=== PATIENT | female | born 1990 | race Caucasian/White ===

== ENCOUNTER 2016-09-01 19:43 | Emergency (ER) | payer BC ==
[2016-09-01 20:38] VITALS: BP 125/71
[2016-09-01] MEDS ORDERED: Gabapentin CAP(*) 100 MG PO ONE (21:51)
[2016-09-01] MEDS ORDERED: Cyclobenzaprine TAB* 10 MG PO ONE ×2 (21:51→21:52)
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
== END 2016-09-01 22:02 | disposition home or self-care (01) ==
LOC: UCCORT 19:43
DX: M54.12 Radiculopathy, cervical region (principal); J45.909 Unspecified asthma, uncomplicated; H53.8 Other visual disturbances; Z88.1 Allergy status to other antibiotic agents; Z88.0 Allergy status to penicillin; Z88.8 Allergy status to other drugs, medicaments and biological substances
CPT/HCPCS: 99212; A9270-GY; G0463

== ENCOUNTER 2018-08-14 18:39 | Emergency (ER) | payer SELFPAY ==
[2018-08-14 19:23] VITALS: BP 116/67
--- NOTE | 2018-08-14 19:52 | UC ---
Minor Trauma HPI - HPI Summary HPI Summary: 27 yo female presents minutes after falling down stairs right knee and foot pain unable to bear wt denies head or neck injury - History of Current Complaint Chief Complaint: UCLowerExtremity Stated Complaint: RIGHT KNEE INJURY Time Seen by Provider: 08/14/18 19:17 Hx Obtained From: Patient Hx Last Menstrual Period: 07/22/18 Onset/Duration: Sudden Onset, Lasting Minutes Onset Of Pain: Immediate Severity Initially: Severe Severity Currently: Moderate Pain Intensity: 7 - decline analgesic Pain Scale Used: 0-10 Numeric Mechanism Of Injury: Fall From A Standing Position Aggravating Factor(s): Ambulation Alleviating Factor(s): Elevation Associated Signs And Symptoms: Positive: Other: - right knee abrasion. Negative : Loss Of Consciousness Body - Head: 1 - abrasion/entire knee tender to palpation 2 - tender dorsum of mid foot - Allergies/Home Medications Allergies/Adverse Reactions: Allergies Allergy/AdvReac Type Severity Reaction Status Date / Time albuterol Allergy Difficulty Verified 08/14/18 19:22 Breathing amoxicillin Allergy Hives Verified 08/14/18 19:22 doxycycline Allergy Anaphylatic Verified 08/14/18 19:22 Shock Penicillins Allergy Hives Verified 08/14/18 19:22 prednisone Allergy Difficulty Verified 08/14/18 19:22 Breathing Home Medications: Home Medications NK [No Home Medications Reported] 08/14/18 [History Confirmed 08/14/18] PMH/Surg Hx/FS Hx/Imm Hx Previously Healthy: Yes - Surgical History Surgical History: Yes Surgery Procedure, Year, and Place: Breast reduction April 2010. laproscopy. LEFT LABRAL REPAIR - Family History Known Family History: Positive: Other - No CVA. Negative: Cardiac Disease - Social History Alcohol Use: Occasionally Substance Use Type: None Smoking Status (MU): Never Smoked Tobacco Have You Smoked in the Last Year: No Review of Systems All Other Systems Reviewed And Are Negative: Yes Constitutional: Positive: Negative Eyes: Positive: Negative ENT: Positive: Negative Respiratory: Positive: Negative Cardiovascular: Positive: Negative Gastrointestinal: Positive: Negative Genitourinary: Positive: Negative Motor: Positive: Negative Neurovascular: Positive: Negative Musculoskeletal: Positive: Arthralgia - right knee/foot Neurological: Positive: Negative Psychological: Positive: Negative Physical Exam Triage Information Reviewed: Yes Appearance: Well-Appearing, No Pain Distress, Well-Nourished Vital Signs: Initial Vital Signs Temp 98.3 F 08/14/18 19:19 Pulse 87 08/14/18 19:19 Resp 18 08/14/18 19:19 BP 116/67 08/14/18 19:19 Pulse Ox 100 08/14/18 19:19 Vital Signs Reviewed: Yes Eyes: Positive: Conjunctiva Clear ENT: Positive: Hearing grossly normal, Uvula midline. Negative: Nasal congestion, Nasal drainage, Trismus, Muffled voice, Hoarse voice Neck: Positive: Supple, Nontender, No Lymphadenopathy Respiratory: Positive: Lungs clear, Normal breath sounds, No respiratory distress, No accessory muscle use Cardiovascular Exam: Normal Cardiovascular: Positive: RRR Bowel Sounds: Positive: Present Neurological: Positive: Other: - see image Psychological Exam: Normal Skin Exam: Normal Diagnostics - Radiology No standard instances Radiology Interpretation Completed By: ED Physician Summary of Radiographic Findings: no fx noted right knee or foot Minor Trauma Course/Dx - Differential Dx/Diagnosis Provider Diagnosis: Contusion of right knee, Abrasion of right knee, Right foot sprain Discharge - Sign-Out/Discharge Documenting (check all that apply): Patient Departure All imaging exams completed and their final reports reviewed: No - Discharge Plan Condition: Critical Disposition: HOME Patient Education Materials: Knee Immobilizer (ED), Knee Pain (ED), Foot Sprain (ED), Crutch Instructions (ED), R.I.C.E. Treatment (ED) Forms: *Work Release Referrals: No Primary Care Phys,NOPCP [Primary Care Provider] - Colton Lozada MD [Medical Doctor] - As Soon As Possible - Billing Disposition and Condition Condition: CRITICAL Disposition: Home
--- NOTE | 2018-08-15 11:34 | UC ---
- Progress Note Progress Note: RADIOLOGY REPORTS REVIEWED. NO ACUTE OSSEOUS INJURY. NO CHANGE IN MGMT. Course/Dx - Diagnoses Provider Diagnoses: Contusion of right knee, Abrasion of right knee, Right foot sprain Discharge - Sign-Out/Discharge Documenting (check all that apply): Post-Discharge Follow Up All imaging exams completed and their final reports reviewed: Yes - Discharge Plan Condition: Improved Disposition: HOME Patient Education Materials: Crutch Instructions (ED), Foot Sprain (ED), Knee Pain (ED), R.I.C.E. Treatment (ED), Knee Immobilizer (ED) Forms: *Work Release Referrals: Colton Lozada MD [Medical Doctor] - As Soon As Possible No Primary Care Phys,NOPCP [Primary Care Provider] - - Billing Disposition and Condition Condition: IMPROVED Disposition: Home
== END 2018-08-14 21:09 | disposition home or self-care (01) ==
LOC: UCCORT 18:39
DX: S80.01XA Contusion of right knee, initial encounter (principal); S80.211A Abrasion, right knee, initial encounter; S93.601A Unspecified sprain of right foot, initial encounter; Z88.1 Allergy status to other antibiotic agents; Z88.0 Allergy status to penicillin; Z88.8 Allergy status to other drugs, medicaments and biological substances; W10.9XXA Fall (on) (from) unspecified stairs and steps, initial encounter; Y92.9 Unspecified place or not applicable
CPT/HCPCS: 99213; G0463

== ENCOUNTER 2019-03-07 17:20 | Emergency (ER) | payer SELFPAY ==
[2019-03-07 18:13] VITALS: BP 112/78
[2019-03-07] MEDS ORDERED: Ondansetron ODT TAB* 4 MG PO ONE (19:27)
--- NOTE | 2019-03-07 19:27 | UC ---
UC General HPI - HPI Summary HPI Summary: 28-year-old female comes in with a chief complaint of not feeling well for 2 weeks. 2 weeks ago patient took an edible drug and was very disoriented and had nausea and vomiting. Reports she felt disoriented for about 3 days. She's continued to have epigastric pain and nausea. She had diarrhea until a couple of days ago. Reports stools are still loose. About a week ago she developed upper respiratory tract infection symptoms with rhinorrhea cough and chest congestion. She gets intermittent headaches that are centered in either the right or left frontal areas. She's had migraines in the past and these are similar to her prior migraines. She takes ibuprofen and they go away. Headaches do not wake her from sleep. Denies any focal weakness or numbness. No difficulty with speech or vision. She has been having episodes of dizziness where the floor seems to be moving. Dizziness is worse with movement of her head. The dizziness is intermittent. - History of Current Complaint Chief Complaint: UCRespiratory Stated Complaint: DIZZINESS Time Seen by Provider: 03/07/19 18:56 Hx Last Menstrual Period: 02/20/19 Pain Intensity: 6 - Allergy/Home Medications Allergies/Adverse Reactions: Allergies Allergy/AdvReac Type Severity Reaction Status Date / Time Adhesive Tape Allergy Swelling Verified 03/07/19 18:14 albuterol Allergy Difficulty Verified 03/07/19 18:13 Breathing amoxicillin Allergy Hives Verified 03/07/19 18:13 doxycycline Allergy Anaphylatic Verified 03/07/19 18:13 Shock hydrocodone Allergy Vomiting Verified 03/07/19 18:14 Penicillins Allergy Hives Verified 03/07/19 18:13 prednisone Allergy Difficulty Verified 03/07/19 18:13 Breathing PMH/Surg Hx/FS Hx/Imm Hx Previously Healthy: Yes - Surgical History Surgical History: Yes Surgery Procedure, Year, and Place: Breast reduction April 2010. laproscopy. LEFT LABRAL REPAIR - Family History Known Family History: Positive: Other - No CVA. Negative: Cardiac Disease - Social History Alcohol Use: Occasionally Substance Use Type: Marijuana Substance Use Comment - Amount & Last Used: 02/24/19 ate marijuana infused "edible" Smoking Status (MU): Never Smoked Tobacco Have You Smoked in the Last Year: No Review of Systems All Other Systems Reviewed And Are Negative: Yes Constitutional: Positive: Other - SEE HPI Skin: Positive: Negative Eyes: Positive: Negative ENT: Positive: Nasal Discharge, Sinus Congestion Respiratory: Positive: Cough, Other - SEE HPI Cardiovascular: Positive: Negative Gastrointestinal: Positive: Abdominal Pain, Vomiting, Diarrhea, Nausea, Other - SEE HPI Genitourinary: Positive: Negative Motor: Positive: Negative Neurovascular: Positive: Negative Musculoskeletal: Positive: Negative Neurological: Positive: Headache Psychological: Positive: Negative Is Patient Immunocompromised?: No Physical Exam Triage Information Reviewed: Yes Appearance: Well-Appearing, No Pain Distress, Well-Nourished Vital Signs: Initial Vital Signs Temp 98.2 F 03/07/19 18:03 Pulse 80 03/07/19 18:03 Resp 16 03/07/19 18:03 BP 112/78 03/07/19 18:03 Pulse Ox 100 03/07/19 18:03 Vital Signs Reviewed: Yes Eye Exam: Normal Eyes: Positive: Conjunctiva Clear, Other: - PERRLA EOMI. No nystagmus on exam. No visual field deficits. Patient reports that she does have a little bit dizzy with movement of her eyes. ENT: Positive: Pharynx normal, TMs normal Neck: Positive: Supple Respiratory: Positive: Lungs clear, Normal breath sounds, No respiratory distress Cardiovascular: Positive: RRR Abdomen Description: Positive: Other: - Mild tenderness to palpation in the epigastrium. Otherwise nontender positive bowel sounds. Bowel Sounds: Positive: Present Musculoskeletal: Positive: Strength Intact, ROM Intact Neurological: Positive: Alert, Muscle Tone Normal, Other: - No nystagmus on exam. No focal visual deficit no speech difficulties. Smile is symmetric normal sensation both sides of the face arms have full range of motion there is no drift full-strength in the arms and legs. Heel to vásquez and finger to nose are all normal. Patient is able to hop up and down on one leg without problems. Psychological: Positive: Age Appropriate Behavior Skin Exam: Normal Course/Dx - Course Course Of Treatment: It appears that the patient's continued to have GI upset after taking the edible drug. She describes burning in the epigastrium. To treat that with omeprazole. She's also been nauseous, treat that with Zofran. The diarrhea is improving. Patient has also having symptoms of vertigo. We'll treat that with meclizine. Patient has no focal neurologic deficits. The headaches come and go. They do improve with ibuprofen. Appears the patient's picked up an upper respiratory tract infection on top of her other symptoms. At this time were not to treat with an antibiotic as it could upset the stomach further. Recommended symptomatically treatment of her upper respiratory tract infection symptoms. Patient's to get reevaluated if not improving or worse. - Diagnoses Provider Diagnosis: Dizziness, Nausea, Epigastric pain, GERD (gastroesophageal reflux disease) Discharge ED - Sign-Out/Discharge Documenting (check all that apply): Patient Departure All imaging exams completed and their final reports reviewed: No Studies - Discharge Plan Condition: Stable Disposition: HOME Prescriptions: Meclizine HCl [Motion Sickness Relief] 25 mg PO Q6HR PRN #20 tablet PRN Reason: Dizziness Omeprazole 20 mg PO BID #30 capsule. Ondansetron ODT TAB* [Zofran 4 MG Odt TAB*] 4 mg PO Q6H PRN #15 tab.odt PRN Reason: Nausea Patient Education Materials: Vertigo (ED), Abdominal Pain (ED), Dizziness (ED) Referrals: [facility]FERRAL [Outside] [facility] [Outside] Additional Instructions: FOLLOW UP WITH YOUR DOCTOR IF NOT COMPLETELY IMPROVED. GET RECHECKED SOONER IF YOUR CONDITION WORSENS OR ANY QUESTIONS OR CONCERNS. - Billing Disposition and Condition Condition: STABLE Disposition: Home
== END 2019-03-07 19:40 | disposition home or self-care (01) ==
LOC: UCEAST 17:20
DX: K21.9 Gastro-esophageal reflux disease without esophagitis (principal); R11.2 Nausea with vomiting, unspecified; R42 Dizziness and giddiness; R10.13 Epigastric pain; Z91.09 Other allergy status, other than to drugs and biological substances; Z88.8 Allergy status to other drugs, medicaments and biological substances; Z88.0 Allergy status to penicillin; Z88.1 Allergy status to other antibiotic agents; Z88.5 Allergy status to narcotic agent; Z88.2 Allergy status to sulfonamides
CPT/HCPCS: 99212; A9270-GY; G0463

== ENCOUNTER 2019-05-08 14:29 | Emergency (ER) | payer SELFPAY ==
[2019-05-08 14:49] VITALS: BP 121/83
--- NOTE | 2019-05-08 15:27 | UC ---
General HPI - HPI Summary HPI Summary: Patient is a 28yo female with PMH significant for asthma presenting with c/o nonproductive cough, mild nasal congestion, and sore throat with coughing x2 weeks. Patient states she "thinks it's just a cold but wants to make sure because it is lasting so long." Notes SOB at "random times." Denies wheezing and chest pain. ALso notes LLQ "annoying aching" x3 weeks that she states is worse with lying down and walking but "isn't painful, just annoying." Denies urinary symptoms and chance of , LMP 2-3 weeks ago. Denies n/v/d. Denies radiating abdominal pain. Denies current pain. Denies flank pain. Notes h /o ovarian cysts. Denies fever, chills, decreased appetite, and fatigue. States that use of albuterol inhaler relieves SOB. - History of Current Complaint Chief Complaint: UCRespiratory Stated Complaint: ST,STUFFY NOSE,CONGESTION Hx Obtained From: Patient Hx Last Menstrual Period: 04/19/19 Onset/Duration: Gradual Onset, Lasting Weeks Pain Intensity: 0 - Allergy/Home Medications Allergies/Adverse Reactions: Allergies Allergy/AdvReac Type Severity Reaction Status Date / Time Adhesive Tape Allergy Swelling Verified 05/08/19 14:42 albuterol Allergy Difficulty Verified 05/08/19 14:42 Breathing amoxicillin Allergy Hives Verified 05/08/19 14:42 doxycycline Allergy Anaphylatic Verified 05/08/19 14:42 Shock hydrocodone Allergy Vomiting Verified 05/08/19 14:42 Penicillins Allergy Hives Verified 05/08/19 14:42 prednisone Allergy Difficulty Verified 05/08/19 14:42 Breathing Home Medications: Home Medications Topiramate [Topamax] 1 tab DAILY 05/08/19 [History Confirmed 05/08/19] PMH/Surg Hx/FS Hx/Imm Hx Respiratory History: Asthma GI/ History: Other - ovarian cysts Psychological History: Depression - Surgical History Surgical History: Yes Surgery Procedure, Year, and Place: Breast reduction April 2010. laproscopy. LEFT LABRAL REPAIR - Family History Known Family History: Positive: Other - No CVA. Negative: Cardiac Disease - Social History Alcohol Use: Occasionally Substance Use Type: None Substance Use Comment - Amount & Last Used: 02/24/19 ate marijuana infused "edible" Smoking Status (MU): Never Smoked Tobacco Have You Smoked in the Last Year: No Review of Systems All Other Systems Reviewed And Are Negative: Yes Constitutional: Positive: Negative. Negative: Fever, Chills, Fatigue ENT: Positive: Sore Throat - with coughing, Sinus Congestion. Negative: Ear Ache, Nasal Discharge Respiratory: Positive: Shortness Of Breath - "randomly", Cough - nonproductive Cardiovascular: Positive: Negative Gastrointestinal: Positive: Abdominal Pain - LLQ "annoying ache". Negative: Vomiting, Diarrhea, Nausea Genitourinary: Positive: Negative. Negative: Dysuria, Hematuria, Frequency, Urgency, Abnormal Bleeding Musculoskeletal: Positive: Negative Neurological: Positive: Negative Physical Exam Triage Information Reviewed: Yes Appearance: Well-Appearing, No Pain Distress, Well-Nourished Vital Signs: Initial Vital Signs Temp 97.7 F 05/08/19 14:42 Pulse 92 05/08/19 14:42 Resp 16 05/08/19 14:42 BP 121/83 05/08/19 14:42 Pulse Ox 100 05/08/19 14:42 Vital Signs Reviewed: Yes Eyes: Positive: Conjunctiva Clear ENT: Positive: Hearing grossly normal, Pharyngeal erythema, TMs normal, Uvula midline. Negative: Nasal congestion, Nasal drainage, Tonsillar swelling, Tonsillar exudate, Sinus tenderness Neck exam: Normal Neck: Positive: Supple, Nontender, No Lymphadenopathy Respiratory Exam: Normal Respiratory: Positive: Lungs clear, Normal breath sounds, No respiratory distress, No accessory muscle use. Negative: Crackles, Rhonchi, Stridor, Wheezing Cardiovascular Exam: Normal Cardiovascular: Positive: RRR Abdomen Description: Positive: No Organomegaly, Soft. Negative: Nontender - mild diffuse tenderness of suprapubic region, CVA Tenderness (R), CVA Tenderness (L), Distended, Guarding, McBurney's Point Tenderness Bowel Sounds: Positive: Present Neurological: Positive: Alert Psychological: Positive: Age Appropriate Behavior Skin Exam: Normal - no erythema or ecchymosis Course/Dx - Course Course Of Treatment: Patient UA negative. Patient VS normal and well-appearing. Educated on a viral bronchitis and duration of symptoms. Instructed to use albuterol inhaler as needed for shortness of breath. Patient had albuterol listed as an allergy with reaction of difficulty breathing. When questioned, patient stated "that must be a typo, because I've never had a problem with my inhaler. I just used it yesterday." Patient reassured me that albuterol inhaler is well-tolerated and requested a refill. Instructed patient to follow up with pcp if abdominal aching or respiratory symptoms persist. Instructed to go to the ED with any new or worsening symptoms. Patient voiced understanding and agreed with treatment plan. - Diagnoses Provider Diagnosis: Viral bronchitis, LLQ discomfort Discharge ED - Sign-Out/Discharge Documenting (check all that apply): Patient Departure All imaging exams completed and their final reports reviewed: No Studies - Discharge Plan Condition: Stable Disposition: HOME Prescriptions: Albuterol HFA INHALER* [Ventolin HFA Inhaler*] 1 - 2 puff INH Q6H PRN #1 mdi PRN Reason: Sob/Wheezing Patient Education Materials: Laryngitis (ED), Acute Bronchitis (ED), Acute Abdominal Pain (ED) Additional Instructions: As discussed, your symptoms are likely caused by a virus and should resolve in time without treatment. Continue use of your inhaler as needed for your shortness of breath. You may use nasal saline spray as directed for symptomatic relief. You may take ibuprofen as directed for pain relief. Get plenty of rest and fluids. Follow up with your primary care doctor if any of your symptoms worsen or do not resolve within 7 days. - Billing Disposition and Condition Condition: STABLE Disposition: Home
[2019-05-08 16:01] LABS: Influenza A Molecular NEGATIVE (Negative); Influenza B Molecular NEGATIVE (Negative)
== END 2019-05-08 16:16 | disposition home or self-care (01) ==
LOC: UCCORT 14:29
DX: J20.8 Acute bronchitis due to other specified organisms (principal); J45.909 Unspecified asthma, uncomplicated; J02.9 Acute pharyngitis, unspecified; R10.32 Left lower quadrant pain; R09.81 Nasal congestion; Z91.09 Other allergy status, other than to drugs and biological substances; Z88.0 Allergy status to penicillin; Z88.1 Allergy status to other antibiotic agents; Z88.5 Allergy status to narcotic agent; Z88.8 Allergy status to other drugs, medicaments and biological substances
CPT/HCPCS: 81003; 99212; G0463

== ENCOUNTER 2019-05-17 13:12 | Emergency (ER) | payer SELFPAY ==
[2019-05-17 14:03] VITALS: BP 120/73
--- NOTE | 2019-05-17 16:01 | UC ---
Respiratory Complaint HPI - HPI Summary HPI Summary: 28-year-old female comes in with a chief complaint of 2-1/2 weeks of upper respiratory tract infection symptoms. She's had wheezing chest congestion. She has used her albuterol which does help some with the symptoms. Also over- the-counter medicines up some symptoms with overall she's getting worse rather than better. She feels like she has a lot of congestion in her chest and can't get it out. Does have sore throat also. - History of Current Complaint Chief Complaint: UCRespiratory Stated Complaint: COUGH Time Seen by Provider: 05/17/19 15:42 Hx Last Menstrual Period: 05/16/19 Pain Intensity: 8 - Allergies/Home Medications Allergies/Adverse Reactions: Allergies Allergy/AdvReac Type Severity Reaction Status Date / Time Adhesive Tape Allergy Swelling Verified 05/17/19 13:56 amoxicillin Allergy Hives Verified 05/17/19 13:56 doxycycline Allergy Anaphylatic Verified 05/17/19 13:56 Shock hydrocodone Allergy Vomiting Verified 05/17/19 13:56 Penicillins Allergy Hives Verified 05/17/19 13:56 prednisone Allergy Difficulty Verified 05/17/19 13:56 Breathing PMH/Surg Hx/FS Hx/Imm Hx Previously Healthy: Yes Respiratory History: Asthma - Surgical History Surgical History: Yes Surgery Procedure, Year, and Place: Breast reduction April 2010. laproscopy. LEFT LABRAL REPAIR - Family History Known Family History: Positive: Other - No CVA. Negative: Cardiac Disease - Social History Alcohol Use: None Substance Use Type: None Substance Use Comment - Amount & Last Used: 02/24/19 ate marijuana infused "edible" Smoking Status (MU): Never Smoked Tobacco Have You Smoked in the Last Year: No Review of Systems All Other Systems Reviewed And Are Negative: Yes Constitutional: Positive: Other - SEE HPI Skin: Positive: Negative Eyes: Positive: Negative ENT: Positive: Sore Throat Respiratory: Positive: Shortness Of Breath, Cough, Other - SEE HPI Cardiovascular: Positive: Negative Gastrointestinal: Positive: Negative Motor: Positive: Negative Neurovascular: Positive: Negative Musculoskeletal: Positive: Negative Neurological: Positive: Negative Psychological: Positive: Negative Is Patient Immunocompromised?: No Physical Exam Triage Information Reviewed: Yes Appearance: No Pain Distress, Well-Nourished, Ill-Appearing - MILD Vital Signs: Initial Vital Signs Temp 99.3 F 05/17/19 13:57 Pulse 94 05/17/19 13:57 Resp 16 05/17/19 13:57 BP 120/73 05/17/19 13:57 Pulse Ox 100 05/17/19 13:57 Vital Signs Reviewed: Yes Eye Exam: Normal Eyes: Positive: Conjunctiva Clear ENT: Positive: Pharyngeal erythema, Nasal congestion, Nasal drainage, TMs normal Neck: Positive: Supple Respiratory: Positive: No respiratory distress, No accessory muscle use, Rhonchi Musculoskeletal: Positive: Strength Intact, ROM Intact Neurological: Positive: Alert, Muscle Tone Normal Psychological: Positive: Age Appropriate Behavior Skin Exam: Normal Respiratory Course/Dx - Course Course Of Treatment: Industrial Robotics Mechanic: Jerad Carlson ([id number]) Dentures Lab Technician: SARITA (NUANCE) Report Date: 05/17/2019 16:47:00 Report Status: Final Start of Report Content Patient Name: ANGEL RENDON Medical Record#: [id number] Ordering Physician: Alton Mccabe MD Acct.#: [id number] : Age: 28 Sex: F Location: [facility] Exam Date: 05/17/19 1558 ADM Status: [facility] ER Order Information: CHEST PA LAT 2 VWS Accession Number: [id number] CPT: 01556 INDICATION: Cough COMPARISON: There are no relevant prior studies available for comparison. TECHNIQUE: Dual-energy PA and lateral views of the chest were obtained. FINDINGS: The lungs are clear. There is no pleural effusion. The cardiomediastinal silhouette is within normal limits. The upper abdominal contents are normal. Osseous structures are unremarkable. IMPRESSION: No acute cardiopulmonary process by radiograph. <Electronically signed by Jerad Carlson MD in OV> 05/17/191642 Dictated By: Jerad Carlson MD Dictated Date/Time: 1641 Transcribed Date/Time: 05/17/191641 Copy to: CC:No Primary Care Phys, NOPCP ; Alton Mccabe MD Imaging - [facility] Imaging - [facility] Imaging - [facility] [address] [facility] [address] [address] ph ([phone]) ph ([phone]) ph ([phone]) ==== End of Report Content I discussed the x-rays with the patient. Patient does feel somewhat improved after nebulized albuterol. The plan will be to continue treating with albuterol and also uses steroid and because her symptoms have been going on for more than 2 weeks we will treat with the antibiotic to azithromycin. Patient to get reevaluated if worsening questions or concerns. - Differential Dx/Diagnosis Provider Diagnosis: Bronchitis with bronchospasm Discharge ED - Sign-Out/Discharge Documenting (check all that apply): Patient Departure All imaging exams completed and their final reports reviewed: Yes - Discharge Plan Condition: Stable Disposition: HOME Prescriptions: Azithromyxin LAMONTE (NF) [Z-Lamonte (Zithromax) 250 mg tabs #6] 2 tab PO .TODAY, THEN 1 DAILY #6 tab methylPREDNISolone [Medrol Dosepak 4 MG*] 0 mg PO .SEE LAMONTE INSTRUCTION #1 lamonte Patient Education Materials: Acute Bronchitis (ED), Bronchospasm (ED) Referrals: [facility] [Outside] Additional Instructions: FOLLOW UP WITH YOUR DOCTOR IF NOT COMPLETELY IMPROVED. GET REEVALUATED SOONER IF NOT IMPROVING OR WORSE OR ANY QUESTIONS OR CONCERNS. - Billing Disposition and Condition Condition: STABLE Disposition: Home
[2019-05-17] MEDS ORDERED: Albuterol 2.5 MG/3 ML NEB.SOL* (0.083%) INH ONE (16:20)
== END 2019-05-17 17:05 | disposition home or self-care (01) ==
LOC: UCCORT 13:12
DX: J45.909 Unspecified asthma, uncomplicated (principal); J98.01 Acute bronchospasm; J02.9 Acute pharyngitis, unspecified; Z88.0 Allergy status to penicillin; Z88.1 Allergy status to other antibiotic agents; Z88.5 Allergy status to narcotic agent; Z88.8 Allergy status to other drugs, medicaments and biological substances; Z91.09 Other allergy status, other than to drugs and biological substances
CPT/HCPCS: 71046; 99212; G0463